=== PATIENT | female | born 1960 | race Caucasian/White ===

== ENCOUNTER → 2023-09-05 14:50 | Outpatient (REF) | payer MEDICARE, OTHER, SELFPAY | LOC: RAD 14:50 | PROVIDERS: ATTENDING PHYSICIAN Family Medicine; FAMILY PHYSICIAN Family Medicine | DX: M25.551 Pain in right hip (principal) | CPT/HCPCS: 72110 ==

== ENCOUNTER 2023-12-31 08:43 | Emergency (ER) | payer OTHER, SELFPAY ==
[2023-12-31 08:44] VITALS: BP 157/74
--- NOTE | 2023-12-31 09:22 | ED.GENMED ---
History of Present Illness
General
Chief Complaint: Musculo-Skeletal Complaint
Source: patient
Exam Limitations: none
Time Seen by Provider: 12/31/23 08:55
History of Present Illness
History of Present Illness:
63-year-old female presents with pain at her right MTP joint region. Patient states she was playing with her grandson yesterday and wonders if maybe she strained it. She does not recall specific injury. She also question gout. She has no history
of gout. She does have a history of bunionectomy when she was 10 years old. She does follow with podiatry. No fevers.
Past History
Past History
ED Past Medical History: GERD, Hypercholesterolemia and Other (PMR, Kidney stones)
ED Past Surgical History: , Gynecological and Orthopedic
Social History
Tobacco: Former smoker
Alcohol: Occasional
Drug: None
Personal:
Living: with family
Employment: Employed
Family History
Family History: Diabetes (Diabetes in her father) and Hypertension
Phy Exam
Physical Exam
Physical Exam:
CONSTITUTIONAL Vital signs reviewed, Patient alert and oriented to person, place and time. Well-appearing
HEAD atraumatic, normocephalic.
EYES eyelids normal to inspection, Extraocular muscles intact, Conjunctiva normal, Sclera normal.
NECK normal range of motion, Trachea midline, no jugular venous distention.
RESP no respiratory distress
BACK No obvious deformities
UPPER EXTREMITY Gross Range of motion normal, gross motor strength normal
LOWER EXTREMITY Gross range of motion normal, Gross motor strength normal, moderate tenderness surrounding the right MTP question small effusion but there is swelling in the plantar aspect it is more prominent. There is slight increased warmth but
no redness. There is no tenderness at the calcaneus or midfoot. No lateral tenderness. Normal distal cap refill
NEURO Speech normal, No focal motor deficits include, Maryann coma scale 15, Memory normal, Cranial Nerves intact to screening exam.
SKIN Skin warm, dry, and normal in color.
PSYCHIATRIC Patient oriented to person place and time, Normal affect.
Course
Orders/Labs/Results
Orders:
Orders
12/31/23 08:47
Foot, Right 3 View [CR Foot - Right Min 3 Views] Urgent
Comment:
Reason For Exam: pain
Vital Signs
Initial and Last Documented VS:
Initial Vital Signs
Temp Pulse Resp BP Pulse Ox
98.1 F 77 18 157/74 97
12/31/23 08:44 12/31/23 08:44 12/31/23 08:44 12/31/23 08:44 12/31/23 08:44
Last Documented Vital Signs
Temp Pulse Resp BP Pulse Ox
98.1 F 77 18 157/74 97
12/31/23 08:44 12/31/23 08:44 12/31/23 08:44 12/31/23 08:44 12/31/23 08:44
MDM/Problems Addressed
Differential Diagnosis Includes:
Gout, fracture, plantar fasciitis, tendinitis, strain
MDM/Problems Addressed:
Foot pain, possible gout
*Radiology
Radiology exam reviewed: all reviewed NAD by ED Provider
*Pulse Oximetry
Patient hypoxic: no
*Critical Care Note
Total Time (30-74mins, 75-104mins- exclusive of procedures): Not Applicable
Data Reviewed
Source: patient
Prescriptions/Medications Considered But Not Given:
Considered steroids but will trial Indocin
Patient Management
Escalation/DeEscalation of care consider admission/obs:
Question gout versus related to overuse as she has had surgery in this area. Will recommend NSAIDs and treatment indomethacin for now. Recommended outpatient follow-up. Rest. Boot for comfort
ED Attending Note
-
Portions of this chart may have been created with voice recognition software.� Occasional wrong word or��sound alike� substitutions may have occurred due to the inherent limitations of voice recognition software.
Discharge Plan
Departure
Patient Disposition: Home (Routine Discharge)
Date of Disposition: 12/31/23
Time of Disposition: 09:27
Patient with high blood pressure during this ER visit?: Yes
Discharge Problem:
Acute foot pain
Instructions: BLOOD PRESSURE
Prescriptions:
New
indomethacin 50 mg capsule
50 mg PO TID PRN (Reason: pain) Qty: 30 0RF
No Action
atorvastatin 10 MG tablet
10 mg PO DAILY
valacyclovir [Valtrex] 1,000 MG tablet
500 mg PO DAILY
vitamin B complex 1 TAB tablet
1 tab PO DAILY
cholecalciferol (vitamin D3) [Vitamin D3] 25 MCG capsule
1,000 unit PO DAILY
vitamin E (dl, acetate) 400 UNITS capsule
400 units PO DAILY
Lysine
1 tab PO DAILY
acetaminophen 325 MG tablet
650 mg PO Q4HPRN PRN (Reason: mild pain) 0RF
ibuprofen 600 MG tablet
600 mg PO Q6HPRN PRN (Reason: mild pain) Qty: 30 0RF
metronidazole 500 MG tablet
500 mg PO TID Qty: 20 0RF
levofloxacin 750 MG tablet
750 mg PO Daily Qty: 6 0RF
amoxicillin-pot clavulanate 875-125 mg tablet
1 tab PO BID Qty: 10 0RF
Referrals:
Martha Canales MD [Family Provider] -
Activity Restrictions/Additional Instructions:
Possible gout
Please rest, ice and elevate your foot. Use the boot for comfort. Please see your doctor or podiatry in the next 1 week if symptoms persist. Return immediately for fevers, worsening pain, increased swelling or any other concerns.
Interventions
Interventions:
*Risk Screen - Suicide Last Done: 12/31/23 08:44
*General Assessment Last Done: 12/31/23 08:44
*Neglect/Abuse Screening Last Done: 12/31/23 08:44
ED-Musculoskeletal Assessment Last Done: 12/31/23 09:15
Discharge Date and Time
Print Language: SETSWANA
== END 2023-12-31 09:39 | disposition home or self-care (01) ==
LOC: EMR 08:43
PROVIDERS: EMERGENCY PHYSICIAN Emergency Medicine; FAMILY PHYSICIAN Family Medicine
DX: M79.671 Pain in right foot (principal); R03.0 Elevated blood-pressure reading, without diagnosis of hypertension; Z87.891 Personal history of nicotine dependence
CPT/HCPCS: 99283; 73630

== ENCOUNTER → 2024-02-06 10:55 | Outpatient (REF) | payer OTHER, SELFPAY | LOC: RAD 10:55 | PROVIDERS: ATTENDING PHYSICIAN Internal Medicine Rheumatology; FAMILY PHYSICIAN Family Medicine | DX: M16.10 Unilateral primary osteoarthritis, unspecified hip (principal); M81.0 Age-related osteoporosis without current pathological fracture | CPT/HCPCS: 73523 ==

== ENCOUNTER → 2024-06-02 16:55 | Outpatient (REF) | payer OTHER, MEDICARE, SELFPAY | LOC: WDC 16:55 | PROVIDERS: ATTENDING PHYSICIAN Obstetrics & Gynecology; FAMILY PHYSICIAN Family Medicine | DX: Z12.31 Encounter for screening mammogram for malignant neoplasm of breast (principal) | CPT/HCPCS: 77063; 77067 ==

== ENCOUNTER 2024-11-16 21:20 | Emergency (ER) | payer OTHER, SELFPAY ==
[2024-11-16 21:22] VITALS: BP 164/76
[2024-11-16 21:38] LABS: % Basophils 0.8 % (0-2); % Eosinophils 3.9 % (0-6); % Immature Granulocytes 0.4 % (0-0.5); % Lymphocytes 28.3 % (20.5-51.1); % Monocytes 9.5 % (1.7-9.3); % Neutrophils 57.1 % (42.2-75.2); Absolute Basophils 0.1 10^3/uL (0-0.2); Absolute Eosinophils 0.3 10^3/uL (0-0.7); Absolute Lymphocytes 2.2 10^3/uL (1.2-3.4); Absolute Monocytes 0.7 10^3/uL (0.1-0.6); Absolute Neutrophils 4.4 10^3/uL (1.4-6.5); Hematocrit 42.2 % (37.0-47.0); Mean Corp Hgb Conc. 33.2 g/dL (33.0-37.0); Mean Corpuscular Hgb 28.2 pg (27.0-31.0); Mean Corpuscular Volume 84.9 fL (81.0-99.0); Nucleated Red Blood Cells % 0 %; Platelet Count 277 10^3/uL (130-400); Red Blood Cell Count 4.97 10^6/uL (4.20-5.40); Red Cell Dist. Width 12.9 % (11.5-14.5); White Blood Cell Count 7.7 10^3/uL (4.8-10.8)
[2024-11-16 21:57] LABS: ALT (SGPT) 19 U/L (0-35); AST (SGOT) 22 U/L (14-36); Albumin 4.8 g/dl (3.5-5.0); Alkaline Phosphatase 63 U/L (38-126); Blood Urea Nitrogen 12 mg/dl (7-17); Carbon Dioxide 27 mmol/L (22-30); Chloride 104 mmol/L (98-107); Glucose 107 mg/dl (70-99); Potassium 4.3 mmol/L (3.5-5.1); Sodium 140 mmol/L (135-145); Total Bilirubin 0.6 mg/dl (0.2-1.3); Total Protein 7.2 g/dl (6.3-8.2); eGFR > 60.00
--- NOTE | 2024-11-16 23:00 | ED.GENMED ---
History of Present Illness
General
Chief Complaint: Breathing Problem
Source: patient and family
Exam Limitations: none
Time Seen by Provider: 11/16/24 22:22
Nursing documentation reviewed up to this point in time: agreed with
History of Present Illness
History of Present Illness:
Pleasant 64-year-old female presents with sore throat and cold. Now has wheezing. She went to [facility] urgent care. Had an x-ray done and was sent to the emergency department because they thought they saw her a 'hole in her lung '.
Past History
Past History
ED Past Medical History: GERD, Hypercholesterolemia and Other (PMR, Kidney stones)
ED Past Surgical History: , Gynecological and Orthopedic
Social History
Tobacco: Former smoker
Alcohol: Occasional
Drug: None
Personal:
Living: with family
Employment: Employed
Family History
Family History: Diabetes (Diabetes in her father) and Hypertension
Review of Systems
Review of Systems
Allergies reviewed?: Yes
All Other Systems: ROS reviewed and negative except as documented in HPI and ROS
Respiratory: Reports trouble breathing
Psychiatric: Reports anxiety
Phy Exam
General Physical Exam
General Presentation: well appearing and mild distress
General Skin: warm and dry
General Habitus: normal
General Mental: alert
General Hydration: appears well hydrated
ENT Exam
ENT Exam: EOMI, pharynx normal, neck supple and normocephalic
Eye Exam
Eye Exam: PERRL, cornea clear and conjunctiva normal
Cardiovascular Exam
Cardiovascular Exam: regular rate/rhythm, no edema and no murmur
Pulmonary Exam
Pulmonary Exam: lungs clear, no respiratory distress, no rales, no crackles, no rhonchi, no stridor, no wheezing and no cough
Gastrointestinal Exam
Gastrointestinal Exam: normal bowel sounds, non tender, soft, no organomegaly, no pulsatile mass and non distended
Neurological Exam
Neurological Exam: alert and oriented x3
Musculoskeletal Exam
Musculoskeletal Exam: full ROM and no edema
Skin Exam
Skin Exam: normal color and warm/dry
Psychiatric Exam
Psychiatric Exam: normal mood/affect and agitated
Scores
Heart Failure Risk
Heart Failure Risk Score: Not Applicable
Course
Orders/Labs/Results
Orders:
Orders
11/16/24 21:32
CMP [Comprehensive Metabolic Panel] Urgent
Complete Blood Count/With Diff Urgent
11/16/24 22:22
CR Chest - 2 Views Urgent
Comment:
Reason For Exam: dyspnea
11/17/24 00:02
Dexamethasone Pf [Decadron] 10 mg PO NOW STA
Ipratropium/Albuterol Sulfate [Duoneb] 3 ml INH R NOW ONE
Abnormal Lab Results
11/16/24
21:32
Absolute Monos (auto) 0.7 H 10^3/uL
(0.1-0.6)
Monocytes % 9.5 H %
(1.7-9.3)
Glucose 107 H mg/dl
(70-99)
11/16/24 21:32
11/16/24 21:32
Vital Signs
Initial and Last Documented VS:
Initial Vital Signs
Temp Pulse Resp BP Pulse Ox
98.2 F 86 22 164/76 97
11/16/24 21:22 11/16/24 21:22 11/16/24 21:22 11/16/24 21:22 11/16/24 21:22
Last Documented Vital Signs
Temp Pulse Resp BP Pulse Ox
98.2 F 86 22 130/70 95
11/16/24 21:22 11/16/24 21:22 11/16/24 21:22 11/17/24 01:00 11/17/24 00:30
*Critical Care Note
Total Time (30-74mins, 75-104mins- exclusive of procedures): Not Applicable
Update Note
Update Note:
Previous x-ray from [facility]. I do not see any evidence of any acute cardiopulmonary process.
ED Attending Note
-
Portions of this chart may have been created with voice recognition software.� Occasional wrong word or��sound alike� substitutions may have occurred due to the inherent limitations of voice recognition software.
Discharge Plan
Departure
Patient Disposition: Home (Routine Discharge)
Date of Disposition: 11/17/24
Time of Disposition: 01:09
Patient with high blood pressure during this ER visit?: Yes
Discharge Problem:
Acute bronchitis
Instructions: Acute Bronchitis, Adult (DC), Shortness of Breath (Dyspnea) (DC), BLOOD PRESSURE
Prescriptions:
New
prednisone 50 mg Tablet
50 mg PO DAILY Qty: 4 0RF
albuterol sulfate 90 mcg/actuation HFA aerosol inhaler
2 puff inhalation Q6H PRN (Reason: shortness of breath or wheezing) Qty: 8.5 0RF
No Action
atorvastatin 10 MG tablet
10 mg PO DAILY
valacyclovir [Valtrex] 1,000 MG tablet
500 mg PO DAILY
vitamin B complex 1 TAB tablet
1 tab PO DAILY
cholecalciferol (vitamin D3) [Vitamin D3] 25 MCG capsule
1,000 unit PO DAILY
vitamin E (dl, acetate) 400 UNITS capsule
400 units PO DAILY
Lysine
1 tab PO DAILY
acetaminophen 325 MG tablet
650 mg PO Q4HPRN PRN (Reason: mild pain) 0RF
ibuprofen 600 MG tablet
600 mg PO Q6HPRN PRN (Reason: mild pain) Qty: 30 0RF
metronidazole 500 MG tablet
500 mg PO TID Qty: 20 0RF
levofloxacin 750 MG tablet
750 mg PO Daily Qty: 6 0RF
amoxicillin-pot clavulanate 875-125 mg tablet
1 tab PO BID Qty: 10 0RF
indomethacin 50 mg capsule
50 mg PO TID PRN (Reason: pain) Qty: 30 0RF
Referrals:
Martha Canales MD [Family Provider] -
Activity Restrictions/Additional Instructions:
Thank You for choosing [facility].
It was a pleasure meeting you and taking part in your care. We hope for your continued healing and wellness.
Please read discharge instructions in their entirety. However, they are for general education and may not describe your exact diagnosis at discharge. Information on your ER visit and medical conditions were discussed with you along with appropriate
follow up information...
If indicated, please take your medications as instructed and indicated on discharge paperwork.
Please schedule a follow up appointment as directed. Call to schedule an appointment
Please return to the emergency department with ANY change in, persisting, or worsening of symptoms. If any of your symptoms do not improve, or persist, or become more severe within 6-12 hours, please return to the emergency department for further
care.
Please return to the emergency department if you develop a headache, neck pain/stiffness, fever greater than 100.4F, chest pain, shortness of breath, persistent nausea, vomiting, slurred speech, difficulty walking, numbness/tingling, weakness, signs
of infection or any other symptoms that are worrisome to you.
If you have any questions or concerns please do not hesitate to call the Hospital at .
Interventions
Interventions:
*Risk Screen - Suicide Last Done: 11/16/24 21:22
*General Assessment Last Done: 11/16/24 23:53
*Neglect/Abuse Screening Last Done: 11/16/24 21:22
*ED- Fall Risk Assessment Last Done: 11/16/24 23:53
*ED COVID-19 Vaccine History Last Done: 11/16/24 23:53
*Nursing Disposition Last Done: 11/17/24 01:22
ED- Cardiac Assessment Last Done: 11/16/24 23:53
ED- Pulmonary Assessment Last Done: 11/16/24 23:53
Discharge Date and Time
Discharge Date/Time: 11/17/24 01:23
Print Language: [id number]
[2024-11-16 23:51] VITALS: BP 146/71
[2024-11-16 23:52] VITALS: BMI 28.5
[2024-11-17] VITALS: BP 135/75
[2024-11-17] MEDS: DUONEB 3 ML INH (00:06)
[2024-11-17] MEDS: DECADRON 10 MG PO (00:06)
[2024-11-17 01:00] VITALS: BP 130/70
== END 2024-11-17 01:23 | disposition home or self-care (01) ==
LOC: EMR 21:20
PROVIDERS: Emergency Medicine; EMERGENCY PHYSICIAN Student in an Organized Health Care Education/Training Program; FAMILY PHYSICIAN Family Medicine
DX: J20.9 Acute bronchitis, unspecified (principal); E78.00 Pure hypercholesterolemia, unspecified; Z87.891 Personal history of nicotine dependence
CPT/HCPCS: 94640; 99284; 71046; 80053; 85025

== ENCOUNTER → 2025-02-11 13:27 | Outpatient (REF) | payer OTHER, SELFPAY | LOC: RAD 13:27 | PROVIDERS: ATTENDING PHYSICIAN Internal Medicine Rheumatology; FAMILY PHYSICIAN Family Medicine | DX: M81.0 Age-related osteoporosis without current pathological fracture (principal) | CPT/HCPCS: 77080 ==